=== PATIENT | female | born 1995 | race Two or more races ===

== ENCOUNTER 2019-09-15 21:38 | Emergency (ER) | payer BC ==
[~2019-09-15] VITALS: Ht 162.6 cm; Wt 63.5 kg
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
--- NOTE | 2019-09-15 23:29 | NUR ---
Patient discharged to home in stable condition. Written and verbal after care instructions given. Patient verbalizes understanding of instruction. Pt` ambulatory with a steady gait
[2019-09-15 23:30] VITALS: BP 108/68
== END 2019-09-15 23:30 | disposition home or self-care (01) ==
LOC: ER 21:48
DX: M62.838 Other muscle spasm (principal)
CPT/HCPCS: 72125-TC; 84703-TC